=== PATIENT | female | born 1990 | race Two or more races ===

== ENCOUNTER 2018-01-14 08:36 | Emergency (ER) | payer SELFPAY ==
[2018-01-14] MEDS ORDERED: DEXAMETHASONE 4 MG TABLET PO ONE (09:04)
[2018-01-14] MEDS ORDERED: IPRATROPIUM/ALBUTEROL 0.5-2.5 MG/3 ML AMPUL NEB ONE (09:04)
[2018-01-14] MEDS ORDERED: PSEUDOEPHEDRINE HCL 30 MG TABLET PO ONE (09:05)
--- NOTE | 2018-01-14 09:06 | ER Document Report ---
HPI - HPI Patient complains to provider of: Cough, ear pain Onset: Yesterday Onset/Duration: Gradual Quality of pain: Achy Pain Level: 3 Context: She presents complaining of sore throat cough congestion and ear pain that started yesterday. Patient does report multiple sick contacts in the household recently. Patient denies any fever. Associated Symptoms: Nonproductive cough. denies: Fever Exacerbated by: Denies Relieved by: Denies Similar symptoms previously: Yes Recently seen / treated by doctor: No - ROS ROS below otherwise negative: Yes Systems Reviewed and Negative: Yes All other systems reviewed and negative - CONSTITUTIONAL Constitutional: DENIES: Fever - EENT EENT: REPORTS: Sore Throat, Ear Pain, Congestion - RESPIRATORY Respiratory: REPORTS: Coughing - GASTROINTESTINAL Gastrointestinal: DENIES: Nausea, Patient vomiting, Diarrhea - MUSCULOSKELETAL Musculoskeletal: DENIES: Back Pain - DERM Skin Color: Normal Skin Problems: None Past Medical History - General Information source: Patient - Social History Smoking Status: Current Every Day Smoker Smoking Education Provided: Yes Frequency of alcohol use: None Drug Abuse: None Occupation: housekeeping Lives with: Family Family History: Reviewed & Not Pertinent Patient has suicidal ideation: No Patient has homicidal ideation: No - Medical History Medical History: Negative Renal/ Medical History: Denies: Hx Peritoneal Dialysis Past Surgical History: Reports: Hx Hysterectomy Vertical Provider Document - CONSTITUTIONAL Agree With Documented VS: Yes Exam Limitations: No Limitations General Appearance: WD/WN, No Apparent Distress - INFECTION CONTROL TRAVEL OUTSIDE OF THE [place] IN LAST 30 DAYS: No - HEENT HEENT: Atraumatic, Normocephalic. negative: Pharyngeal Exudate, Pharyngeal Tenderness, Pharyngeal Erythema, Tympanic Membrane Red, Tympanic Membrane Bulging - NECK Neck: Normal Inspection, Supple. negative: Lymphadenopathy-Left, Lymphadenopathy-Right - RESPIRATORY Respiratory: No Respiratory Distress, Chest Non-Tender, Rhonchi - clears with cough - CARDIOVASCULAR Cardiovascular: Regular Rate, Regular Rhythm, No Murmur - BACK Back: Normal Inspection - MUSCULOSKELETAL/EXTREMETIES Musculoskeletal/Extremeties: MAEW - NEURO Level of Consciousness: Awake, Alert, Appropriate Motor/Sensory: No Motor Deficit - DERM Integumentary: Warm, Dry, No Rash Course - Re-evaluation Re-evalutation: 01/14/18 Patient's respirations even and unlabored. Patient with stable vital signs, no concern for pneumonia at this time. Patient nontoxic in appearance, no concern for sepsis. No concern for BUNDLE PACKER. Good return precautions given. - Vital Signs Vital signs: Temp Pulse Resp BP Pulse Ox 98.6 F 103 H 18 147/92 H 97 01/14/18 08:39 01/14/18 08:39 01/14/18 08:39 01/14/18 08:39 01/14/18 08:39 - Laboratory Laboratory results interpreted by me: 01/14/18 09:39 Labs- Entire Visit 01/14/18 09:00 Group A Strep Rapid NEGATIVE Discharge - Discharge Clinical Impression: Upper respiratory infection Qualifiers: URI type: unspecified URI Qualified Code(s): J06.9 - Acute upper respiratory infection, unspecified Condition: Stable Disposition: HOME, SELF-CARE Instructions: Inhaled Bronchodilators ([facility]), Upper Respiratory Illness ([facility]) Additional Instructions: Return immediately for any new or worsening symptoms Followup with your primary care provider, call tomorrow to make a followup appointment Stop smoking Prescriptions: Albuterol Sulfate [Ventolin Hfa] 2 puff IH Q4HP PRN #17 gm PRN Reason: Guaifenesin/Pseudoephedrne HCl [Mucinex D ER 600-60 mg Tablet] 1 each PO BID PRN #12 tab.er.12h PRN Reason: Naproxen [Naprosyn 250 Nmg Tablet] 1 tab PO BID #14 tablet Forms: Smoking Cessation Education, Return to Work Referrals: [facility] [Provider Group] - Follow up as needed
[2018-01-14 10:06] VITALS: BP 135/84
== END 2018-01-14 10:04 | disposition home or self-care (01) ==
LOC: ER 08:36
DX: J06.9 Acute upper respiratory infection, unspecified (principal); R05 Cough; J02.9 Acute pharyngitis, unspecified; R09.81 Nasal congestion; H92.09 Otalgia, unspecified ear; F17.200 Nicotine dependence, unspecified, uncomplicated
CPT/HCPCS: 94640; 99283; 87070; 87880; J7620

== ENCOUNTER 2019-09-06 17:41 | Emergency (ER) | payer SELFPAY ==
[2019-09-06 18:07] VITALS: BP 137/80
--- NOTE | 2019-09-06 18:43 | ER Document Report ---
ED Medical Screen (RME) - General Chief Complaint: Hemorrhoids Stated Complaint: POSSIBLE HEMORRHOIDS Time Seen by Provider: 09/06/19 18:38 Notes: Patient is a 29-year-old female who presents emergency department with the chief complaint of possible hemorrhoids or an abscess to her rectal area. Patient states that she started to have pain 2 days ago to her anal/rectal area. Patient has history of an abscess in that area in the past. She denies any body aches or chills. She has tried Preparation H and Tucks pads, but has not had relief of her symptoms. Exam: Exam deferred due to patient in triage. I have greeted and performed a rapid initial assessment of this patient. A comprehensive ED assessment and evaluation of the patient, analysis of test results and completion of medical decision making process will be conducted by an additional ED providers. TRAVEL OUTSIDE OF THE [place] IN LAST 30 DAYS: No - Related Data Allergies/Adverse Reactions: Sulfa (Sulfonamide Antibiotics) Allergy (Verified 01/14/18 08:36) Home Medications: Vistaril. Vitamins Past Medical History - Social History Frequency of alcohol use: None Drug Abuse: None Renal/ Medical History: Denies: Hx Peritoneal Dialysis Past Surgical History: Reports: Hx Hysterectomy Physical Exam - Vital signs Vitals: Temp Pulse Resp BP Pulse Ox 99.3 F 85 18 137/80 H 98 09/06/19 18:06 09/06/19 18:06 09/06/19 18:06 09/06/19 18:06 09/06/19 18:06 Course - Vital Signs Vital signs: Temp Pulse Resp BP Pulse Ox 99.3 F 85 18 137/80 H 98 09/06/19 18:35 09/06/19 18:06 09/06/19 18:06 09/06/19 18:06 09/06/19 18:06
== END 2019-09-06 22:40 | disposition left against medical advice (07) ==
LOC: ER 17:41
DX: K62.89 Other specified diseases of anus and rectum (principal); Z79.899 Other long term (current) drug therapy; Z53.20 Procedure and treatment not carried out because of patient's decision for unspecified reasons
CPT/HCPCS: 99281